=== PATIENT | female | born 1975 ===

== ENCOUNTER 2022-03-27 14:31 | Emergency (ER) | payer OTHER ==
[2022-03-27] MEDS ORDERED: Lidocaine 2% PF 5 ML VIAL ONE (15:22)
[2022-03-27] MEDS ORDERED: HYDROcodone/Acetaminophen 5/325 mg Tablet ONE (15:22)
[2022-03-27] MEDS ORDERED: Bacitracin 1 PK ONE (16:55)
[2022-03-27] MEDS ORDERED: Boostrix 0.5 ML (Tdap) VIAL (>/=7 yrs of age) ONE (17:01)
== END 2022-03-27 17:10 | disposition home or self-care (01) ==
LOC: ERS 14:31
DX: S61.051A Open bite of right thumb without damage to nail, initial encounter (principal); S61.011A Laceration without foreign body of right thumb without damage to nail, initial encounter; Z23 Encounter for immunization; W54.0XXA Bitten by dog, initial encounter
CPT/HCPCS: 90471; 90715; J2001